=== PATIENT | female | born 1965 | race Two or more races ===

== ENCOUNTER 2019-08-11 16:06 | Inpatient (IN) | payer OTHER ==
[~2019-08-11] VITALS: Ht 167.6 cm; Wt 100.0 kg
[2019-08-11] MEDS ORDERED: TOPROL PO (16:36)
--- NOTE | 2019-08-11 16:48 | NUR ---
pt ambulated to room, smooth and steady gait, tried to urinate and unable to produce urine sample, Trina SIMMONS at bedside assessing and discussing plan of care. NAD, even and unlabored respirations, call light within reach, changed into gown and resting on IQRA dobbins. Plan to bladder scan and proceed from there.
[2019-08-11] MEDS ORDERED: PHENAZOPYRIDINE 200 MG TABLET ONE (16:55)
[2019-08-11] MEDS ORDERED: PHENAZOPYRIDINE 200 MG TABLET PO ONE (17:00)
[2019-08-11 17:07] LABS: BASOPHILS # (AUTO) 0.02 x10^3/uL (0-0.1); BASOPHILS % (AUTO) 0 % (0-1); EOSINOPHILS % (AUTO) 1 % (1-7); LYMPHOCYTES # (AUTO) 1.65 x10^3/uL (1-3.4); LYMPHOCYTES % (AUTO) 22 % (22-44); MD NO; MEAN PLATELET VOLUME 9.1 fL (7.4-10.4); MONOCYTES # (AUTO) 0.92 x10^3/uL (0.2-0.8); MONOCYTES % (AUTO) 12 % (2-9); NEUTROPHILS # (AUTO) 4.85 x10^3/uL (1.8-6.8); NEUTROPHILS % (AUTO) 64 % (42-75); PLATELET COUNT 266 x10^3/uL (130-400); RED BLOOD COUNT 3.69 x10^6/uL (3.82-5.3); RED CELL DISTRIBUTION WIDTH 18.3 % (9.6-15.2)
--- NOTE | 2019-08-11 17:13 | NUR ---
pt resting in gurney watching television. given warm blanket for comfort, NAD, even and unlabored respirations, denies additional needs at this time, WCTM.
--- NOTE | 2019-08-11 17:13 | NUR ---
BLADDER SCAN REVEALED [address] JOSLYN, INFORMED.
[2019-08-11 17:16] LABS: ANION GAP 12 mmol/L (5-15); CALCIUM 8.7 mg/dL (8.5-10.1); CHLORIDE 93 mmol/L (98-107)
[2019-08-11 18:29] LABS: CULTURE INDICATED? YES; MICROSCOPIC INDICATED
--- NOTE | 2019-08-11 18:35 | NUR ---
PT RESTING IN GURNEY, AWAITING ADMIT, US AT BEDSIDE, NAD, EVEN AND UNLABORED RESPIRATIONS, CALL LIGHT WITHIN REACH, AT BEDSIDE. WCTM
[2019-08-11] MEDS ORDERED: OXYC60TA PO (18:54)
[2019-08-11] MEDS ORDERED: OXYC10TA47 PO ×2 (18:54)
[2019-08-11] MEDS ORDERED: LORA-446 PO (18:54)
--- NOTE | 2019-08-11 19:01 | NUR ---
Bedside report to Julian SULLIVAN, pt care transferred at this time.
[2019-08-11] MEDS ORDERED: ONDANSETRON ODT 4 MG PO PRN (19:30)
[2019-08-11] MEDS ORDERED: SODIUM CHLORIDE 0.9% 1,000 ML IV SCH (19:30)
[2019-08-11] MEDS ORDERED: BISACODYL 10 MG SUPP PR PRN (19:30)
[2019-08-11 19:43] LABS: BILIRUBIN, DIRECT 1.4 mg/dL (0.1-0.2)
[2019-08-11 19:45] LABS: BILIRUBIN,INDIRECT 0.6 mg/dL (0.0-2.0); TOTAL PROTEIN 7.4 g/dL (6.4-8.2)
[2019-08-11] MEDS ORDERED: HEPARIN 5,000 UNITS/ML, 1ML ONE (20:08)
[2019-08-11] MEDS ORDERED: CEFTRIAXONE PMX 1GM/50ML 50 ML ONE (20:08)
[2019-08-11] MEDS: HEPARIN 5,000 UNITS/ML, 1ML SQ SCH (20:14)
[2019-08-11] MEDS: CEFTRIAXONE PMX 1GM/50ML 50 ML IV SCH (20:15)
--- NOTE | 2019-08-11 20:43 | NUR ---
PT RESTING COMFORTABLY WITH SO AT BEDSIDE. WARM BLANKETS PROVIDED. MONITOR IN PLACE.
[2019-08-11] MEDS ORDERED: OXYcodone IR 5MG TABLET ONE (20:46)
[2019-08-11] MEDS: OXYcodone IR 5MG TABLET PO PRN (20:48)
[2019-08-11 21:19] VITALS: BP 100/67
[2019-08-11] MEDS: SODIUM CHLORIDE 0.9% 1,000 ML IV SCH (22:16)
[2019-08-11] MEDS: LORazepam 1MG TABLET PO PRN (23:36)
[2019-08-12 00:40] VITALS: BP_SYST 87; BP_SYST 91; BP_DIAS 55; BP_DIAS 61
[2019-08-12] MEDS: SODIUM CHLORIDE 0.9% 1,000 ML IV SCH ×3 (02:15→22:23)
[2019-08-12 02:16] VITALS: BP 106/60
[2019-08-12] MEDS: HEPARIN 5,000 UNITS/ML, 1ML SQ SCH ×3 (04:14→20:38)
[2019-08-12] MEDS: OXYcodone IR 5MG TABLET PO PRN ×4 (05:15→23:50)
[2019-08-12 05:29] LABS: BASOPHILS # (AUTO) 0.01 x10^3/uL (0-0.1); BASOPHILS % (AUTO) 0 % (0-1); EOSINOPHILS # (AUTO) 0.12 x10^3/uL (0-0.4); EOSINOPHILS % (AUTO) 2 % (1-7); LYMPHOCYTES # (AUTO) 1.71 x10^3/uL (1-3.4); LYMPHOCYTES % (AUTO) 31 % (22-44); MD NO; MEAN CORPUSCULAR HEMOGLOBIN 29.2 pg (27.0-34.8); MEAN CORPUSCULAR HGB CONC 32.7 g/dL (32.4-35.8); MEAN CORPUSCULAR VOLUME 89.2 fL (80-100); MEAN PLATELET VOLUME 9.1 fL (7.4-10.4); MONOCYTES # (AUTO) 0.91 x10^3/uL (0.2-0.8); MONOCYTES % (AUTO) 17 % (2-9); NEUTROPHILS # (AUTO) 2.76 x10^3/uL (1.8-6.8); NEUTROPHILS % (AUTO) 50 % (42-75); PLATELET COUNT 233 x10^3/uL (130-400); RED BLOOD COUNT 3.24 x10^6/uL (3.82-5.3); RED CELL DISTRIBUTION WIDTH 17.8 % (9.6-15.2)
[2019-08-12 05:35] LABS: ALANINE AMINOTRANSFERASE 68 U/L (12-78); ALBUMIN 2.3 g/dL (3.4-5.0); ANION GAP 9 mmol/L (5-15); CALCIUM 8.1 mg/dL (8.5-10.1); CHLORIDE 97 mmol/L (98-107); CREATININE 4.63 mg/dL (0.55-1.02)
[2019-08-12 05:37] LABS: ALKALINE PHOSPHATASE 402 U/L (45-117); BILIRUBIN,TOTAL 1.3 mg/dL (0.2-1.0); TOTAL PROTEIN 6.1 g/dL (6.4-8.2)
[2019-08-12] MEDS: SENNA/DOCUSATE TABLET PO SCH (07:36)
[2019-08-12] MEDS ORDERED: PHARMACY MAY ADJ FOR RENAL FX MC PRN (08:00)
[2019-08-12] MEDS ORDERED: DEXTROSE 4 GM TAB.CHEW PO PRN (08:00)
[2019-08-12] MEDS ORDERED: DEXTROSE 50%, 50ML SYRINGE IVPush PRN (08:00)
[2019-08-12] MEDS ORDERED: GLUCAGON 1 MG IM PRN (08:00)
[2019-08-12 08:06] VITALS: BP 95/61
[2019-08-12] MEDS: SODIUM CHLORIDE FLUSH 10ML SYR IVF SCH ×2 (09:57→20:38)
[2019-08-12] MEDS ORDERED: OXYcodone 5 MG/5 ML ORAL.SOL UDC ONE ×2 (11:14→11:17)
[2019-08-12 14:37] VITALS: BP 81/52
[2019-08-12] MEDS: CEFTRIAXONE PMX 1GM/50ML 50 ML IV SCH (19:05)
[2019-08-12 19:32] VITALS: BP 104/66
[2019-08-12] MEDS: LORazepam 1MG TABLET PO PRN (21:21)
[2019-08-13 00:03] VITALS: BP 94/67
[2019-08-13] MEDS: SODIUM CHLORIDE 0.9% 1,000 ML IV SCH ×2 (04:49→11:12)
[2019-08-13] MEDS: HEPARIN 5,000 UNITS/ML, 1ML SQ SCH ×2 (04:49→13:02)
[2019-08-13 06:03] LABS: ALANINE AMINOTRANSFERASE 76 U/L (12-78); ALBUMIN 2.4 g/dL (3.4-5.0); ANION GAP 10 mmol/L (5-15); CALCIUM 8.4 mg/dL (8.5-10.1); CHLORIDE 106 mmol/L (98-107); CREATININE 2.62 mg/dL (0.55-1.02)
[2019-08-13 06:05] LABS: ALKALINE PHOSPHATASE 564 U/L (45-117); BILIRUBIN,TOTAL 1.5 mg/dL (0.2-1.0); TOTAL PROTEIN 6.6 g/dL (6.4-8.2)
[2019-08-13 06:13] LABS: BASOPHILS # (AUTO) 0.01 x10^3/uL (0-0.1); BASOPHILS % (AUTO) 0 % (0-1); EOSINOPHILS % (AUTO) 2 % (1-7); LYMPHOCYTES # (AUTO) 1.65 x10^3/uL (1-3.4); LYMPHOCYTES % (AUTO) 42 % (22-44); MD NO; MEAN CORPUSCULAR HEMOGLOBIN 28.9 pg (27.0-34.8); MEAN CORPUSCULAR HGB CONC 32.9 g/dL (32.4-35.8); MEAN CORPUSCULAR VOLUME 87.8 fL (80-100); MEAN PLATELET VOLUME 9.5 fL (7.4-10.4); MONOCYTES # (AUTO) 0.52 x10^3/uL (0.2-0.8); MONOCYTES % (AUTO) 13 % (2-9); NEUTROPHILS # (AUTO) 1.68 x10^3/uL (1.8-6.8); NEUTROPHILS % (AUTO) 43 % (42-75); PLATELET COUNT 285 x10^3/uL (130-400); RED BLOOD COUNT 3.61 x10^6/uL (3.82-5.3); RED CELL DISTRIBUTION WIDTH 18.1 % (9.6-15.2)
[2019-08-13 06:47] VITALS: BP 95/67
[2019-08-13 07:16] VITALS: BP 102/64
[2019-08-13] MEDS: OXYcodone IR 5MG TABLET PO PRN ×3 (07:20→19:25)
[2019-08-13] MEDS ORDERED: POTASSIUM CHLORIDE 20 MEQ TAB.ER.PRT PO ONE (09:00)
[2019-08-13] MEDS ORDERED: BISACODYL 10 MG SUPP PR PRN (09:00)
[2019-08-13] MEDS: SODIUM CHLORIDE FLUSH 10ML SYR IVF SCH ×2 (09:15→21:00)
[2019-08-13] MEDS: POLYETHYLENE GLYCOL 17 GM PACKET PO PRN (09:17)
[2019-08-13] MEDS: SENNA/DOCUSATE TABLET PO SCH (09:17)
[2019-08-13] MEDS: LACTATED RINGERS 1,000 ML IV SCH (13:03)
[2019-08-13 13:08] VITALS: BP 110/71
[2019-08-13] MEDS: LORazepam 1MG TABLET PO PRN ×2 (15:18→21:21)
[2019-08-13] MEDS: CEFTRIAXONE PMX 1GM/50ML 50 ML IV SCH (19:25)
[2019-08-13 20:51] VITALS: BP 111/71
[2019-08-14] MEDS: LACTATED RINGERS 1,000 ML IV SCH (01:37)
[2019-08-14] MEDS: OXYcodone IR 5MG TABLET PO PRN ×3 (01:37→21:49)
[2019-08-14 02:30] VITALS: BP 129/79
[2019-08-14 05:56] LABS: ALBUMIN 2.2 g/dL (3.4-5.0); ANION GAP 9 mmol/L (5-15); CALCIUM 8.5 mg/dL (8.5-10.1); CHLORIDE 109 mmol/L (98-107)
[2019-08-14 06:02] LABS: ALANINE AMINOTRANSFERASE 96 U/L (12-78); ALKALINE PHOSPHATASE 562 U/L (45-117); BILIRUBIN,TOTAL 1.4 mg/dL (0.2-1.0); CREATININE 1.55 mg/dL (0.55-1.02); TOTAL PROTEIN 6.1 g/dL (6.4-8.2)
[2019-08-14 06:26] LABS: BASOPHILS # (AUTO) 0.02 x10^3/uL (0-0.1); BASOPHILS % (AUTO) 1 % (0-1); EOSINOPHILS # (AUTO) 0.09 x10^3/uL (0-0.4); EOSINOPHILS % (AUTO) 2 % (1-7); LYMPHOCYTES # (AUTO) 1.72 x10^3/uL (1-3.4); LYMPHOCYTES % (AUTO) 42 % (22-44); MD NO; MEAN CORPUSCULAR HEMOGLOBIN 28.2 pg (27.0-34.8); MEAN CORPUSCULAR HGB CONC 32.2 g/dL (32.4-35.8); MEAN CORPUSCULAR VOLUME 87.6 fL (80-100); MEAN PLATELET VOLUME 9.4 fL (7.4-10.4); MONOCYTES # (AUTO) 0.52 x10^3/uL (0.2-0.8); MONOCYTES % (AUTO) 13 % (2-9); NEUTROPHILS # (AUTO) 1.74 x10^3/uL (1.8-6.8); NEUTROPHILS % (AUTO) 43 % (42-75); PLATELET COUNT 341 x10^3/uL (130-400); RED BLOOD COUNT 3.63 x10^6/uL (3.82-5.3); RED CELL DISTRIBUTION WIDTH 17.7 % (9.6-15.2)
[2019-08-14] MEDS ORDERED: BUPIVACAINE/PF-EPI 0.5% 1:200K ONE (06:49)
[2019-08-14] MEDS: SENNA/DOCUSATE TABLET PO SCH (07:47)
[2019-08-14 08:05] VITALS: BP 123/80
[2019-08-14] MEDS ORDERED: CHLORHEXIDINE 15 ML UDC MM STA (08:21)
[2019-08-14] MEDS: SODIUM CHLORIDE FLUSH 10ML SYR IVF SCH ×2 (08:34→21:00)
[2019-08-14] MEDS ORDERED: POTASSIUM CHLORIDE 20 MEQ in SODIUM CHLORIDE 0.9% 250 ML IV ONE (09:00)
[2019-08-14] MEDS ORDERED: HALOPERIDOL 5 MG/ML IV PRN (09:00)
[2019-08-14] MEDS ORDERED: PROMETHAZINE 25 MG/ML, 1ML IV PRN (09:00)
[2019-08-14] MEDS ORDERED: hydrALAzine 20 MG/ML, 1ML IV PRN (09:00)
[2019-08-14] MEDS ORDERED: HYDROmorphone 2 MG/ML, 1ML IVPush PRN (09:00)
[2019-08-14] MEDS ORDERED: LABETALOL 5MG/ML, 20ML IV PRN (09:00)
[2019-08-14] MEDS ORDERED: MEPERIDINE/PF 25MG/ML,1ML IVPush PRN (09:00)
[2019-08-14] MEDS ORDERED: OXYcodone 5 MG/5 ML ORAL.SOL UDC PO PRN (09:00)
[2019-08-14] MEDS ORDERED: MIDAZOLAM 1 MG/ML, 2ML ONE (09:06)
[2019-08-14] MEDS ORDERED: FENTANYL PF 250 MCG/5ML ONE ×2 (09:07→09:36)
[2019-08-14] MEDS ORDERED: FENTANYL PF 100 MCG/2ML ONE ×4 (11:21→12:26)
[2019-08-14] MEDS ORDERED: CEFAZOLIN 1,000 MG ONE (11:51)
[2019-08-14] MEDS ORDERED: PROPOFOL 10 MG/ML, 20ML ONE (11:51)
[2019-08-14] MEDS ORDERED: ONDANSETRON 2MG/ML, 2ML ONE (11:51)
[2019-08-14] MEDS ORDERED: SUCCINYLCHOLINE 20 MG/ML, 10ML ONE (11:51)
[2019-08-14] MEDS ORDERED: GLYCOPYRROLATE 0.2MG/1ML, 5ML ONE (11:51)
[2019-08-14] MEDS ORDERED: DEXAMETHASONE 4 MG/ML, 1ML ONE (11:51)
[2019-08-14] MEDS ORDERED: ROCURONIUM 10MG/ML,5ML ONE (11:51)
[2019-08-14] MEDS ORDERED: NEOSTIGMINE 1 MG/ML, 10ML ONE (11:51)
[2019-08-14] MEDS: FENTANYL PF 100 MCG/2ML IV PRN ×4 (11:53→13:03)
[2019-08-14] MEDS ORDERED: OXYcodone 5 MG/5 ML ORAL.SOL UDC ONE (11:57)
[2019-08-14] MEDS ORDERED: DIAZEPAM 5 MG/ML, 2ML ONE (11:57)
[2019-08-14] MEDS ORDERED: HYDROmorphone 1 MG/ML, 1ML INJ ONE ×2 (12:15→13:06)
[2019-08-14] MEDS: HYDROmorphone 2 MG/ML, 1ML IVPush PRN ×4 (12:20→13:18)
[2019-08-14] MEDS ORDERED: DIAZEPAM 5 MG/ML, 2ML IVPush PRN (12:30)
[2019-08-14 13:40] VITALS: BP 114/77
[2019-08-14] MEDS: LORazepam 1MG TABLET PO PRN ×2 (17:08→21:49)
[2019-08-14 18:37] VITALS: BP 139/87
[2019-08-14] MEDS: CEFTRIAXONE PMX 1GM/50ML 50 ML IV SCH (19:35)
[2019-08-14] MEDS: DIAZEPAM 5 MG/ML, 2ML IM PRN (20:00)
[2019-08-14] MEDS: ACETAMINOPHEN 325 MG TABLET PO PRN (21:49)
[2019-08-14 23:46] VITALS: BP 144/81
[2019-08-15] MEDS: DIAZEPAM 5 MG/ML, 2ML IM PRN ×4 (02:03→21:25)
[2019-08-15] MEDS: ACETAMINOPHEN 325 MG TABLET PO PRN ×3 (03:52→18:24)
[2019-08-15] MEDS: LORazepam 1MG TABLET PO PRN ×3 (03:52→18:24)
[2019-08-15] MEDS: OXYcodone IR 5MG TABLET PO PRN ×5 (03:52→22:40)
[2019-08-15 03:54] VITALS: BP 134/73
[2019-08-15 05:15] LABS: BASOPHILS # (AUTO) 0.01 x10^3/uL (0-0.1); BASOPHILS % (AUTO) 0 % (0-1); EOSINOPHILS # (AUTO) 0.08 x10^3/uL (0-0.4); EOSINOPHILS % (AUTO) 1 % (1-7); LYMPHOCYTES # (AUTO) 1.41 x10^3/uL (1-3.4); LYMPHOCYTES % (AUTO) 12 % (22-44); MD NO; MEAN CORPUSCULAR HGB CONC 33.3 g/dL (32.4-35.8); MEAN CORPUSCULAR VOLUME 87.2 fL (80-100); MEAN PLATELET VOLUME 8.8 fL (7.4-10.4); MONOCYTES # (AUTO) 0.91 x10^3/uL (0.2-0.8); MONOCYTES % (AUTO) 8 % (2-9); NEUTROPHILS % (AUTO) 79 % (42-75); PLATELET COUNT 382 x10^3/uL (130-400); RED CELL DISTRIBUTION WIDTH 17.9 % (9.6-15.2)
[2019-08-15 05:17] LABS: ALANINE AMINOTRANSFERASE 102 U/L (12-78); ALBUMIN 2.4 g/dL (3.4-5.0); ANION GAP 9 mmol/L (5-15); CALCIUM 8.6 mg/dL (8.5-10.1); CHLORIDE 109 mmol/L (98-107); CREATININE 1.34 mg/dL (0.55-1.02)
[2019-08-15 05:19] LABS: ALKALINE PHOSPHATASE 502 U/L (45-117); BILIRUBIN,TOTAL 1.1 mg/dL (0.2-1.0); TOTAL PROTEIN 6.5 g/dL (6.4-8.2)
[2019-08-15 07:53] VITALS: BP 144/83
[2019-08-15] MEDS: SODIUM CHLORIDE FLUSH 10ML SYR IVF SCH ×2 (09:00→20:47)
[2019-08-15] MEDS: LACTATED RINGERS 1,000 ML IV SCH (09:50)
[2019-08-15] MEDS: SENNA/DOCUSATE TABLET PO SCH (09:50)
[2019-08-15] MEDS: HEPARIN 5,000 UNITS/ML, 1ML SQ SCH ×2 (10:38→18:24)
[2019-08-15 13:25] VITALS: BP 151/87
[2019-08-15] MEDS: CEFTRIAXONE PMX 1GM/50ML 50 ML IV SCH (18:51)
[2019-08-15 19:52] VITALS: BP 146/85
[2019-08-16] MEDS: HEPARIN 5,000 UNITS/ML, 1ML SQ SCH ×3 (01:44→18:27)
[2019-08-16 02:20] VITALS: BP 147/84
[2019-08-16] MEDS: DIAZEPAM 5 MG/ML, 2ML IM PRN (03:33)
[2019-08-16] MEDS: OXYcodone IR 5MG TABLET PO PRN ×4 (04:34→22:48)
[2019-08-16 04:45] LABS: BASOPHILS % (AUTO) 1 % (0-1); EOSINOPHILS % (AUTO) 1 % (1-7); LYMPHOCYTES # (AUTO) 1.51 x10^3/uL (1-3.4); LYMPHOCYTES % (AUTO) 17 % (22-44); MD NO; MEAN CORPUSCULAR HEMOGLOBIN 29.1 pg (27.0-34.8); MEAN CORPUSCULAR HGB CONC 33.1 g/dL (32.4-35.8); MEAN CORPUSCULAR VOLUME 87.8 fL (80-100); MEAN PLATELET VOLUME 8.2 fL (7.4-10.4); MONOCYTES % (AUTO) 7 % (2-9); NEUTROPHILS # (AUTO) 6.84 x10^3/uL (1.8-6.8); NEUTROPHILS % (AUTO) 75 % (42-75); PLATELET COUNT 414 x10^3/uL (130-400); RED CELL DISTRIBUTION WIDTH 18.2 % (9.6-15.2)
[2019-08-16 04:50] LABS: ALBUMIN 2.4 g/dL (3.4-5.0); ANION GAP 8 mmol/L (5-15); CALCIUM 8.5 mg/dL (8.5-10.1); CHLORIDE 106 mmol/L (98-107)
[2019-08-16 04:53] LABS: ALANINE AMINOTRANSFERASE 76 U/L (12-78); ALKALINE PHOSPHATASE 407 U/L (45-117); BILIRUBIN,TOTAL 1.2 mg/dL (0.2-1.0); TOTAL PROTEIN 6.4 g/dL (6.4-8.2)
[2019-08-16] MEDS: LACTATED RINGERS 1,000 ML IV SCH (05:26)
[2019-08-16 06:42] VITALS: BP 155/92
[2019-08-16] MEDS: SODIUM CHLORIDE FLUSH 10ML SYR IVF SCH ×2 (09:00→21:00)
[2019-08-16] MEDS: POTASSIUM CHLORIDE 20 MEQ PACKET PO SCH ×2 (09:44→20:29)
[2019-08-16] MEDS: SENNA/DOCUSATE TABLET PO SCH (09:44)
[2019-08-16] MEDS: DIAZEPAM 5 MG TABLET PO PRN ×3 (09:44→21:38)
[2019-08-16] MEDS: ACETAMINOPHEN 325 MG TABLET PO PRN ×3 (10:27→22:48)
[2019-08-16 12:39] VITALS: BP 154/93
[2019-08-16] MEDS ORDERED: MAGNESIUM SULFATE 4 GM in SODIUM CHLORIDE 0.9% 100 ML IV ONE (13:30)
[2019-08-16 15:30] VITALS: BP 153/85
[2019-08-16] MEDS: METOPROLOL SUCCINATE 50 MG TAB.ER.24H PO SCH (15:34)
[2019-08-16 19:12] VITALS: BP_SYST 135; BP_SYST 150; BP_DIAS 78
[2019-08-16] MEDS: CEFTRIAXONE PMX 1GM/50ML 50 ML IV SCH (20:29)
[2019-08-17 01:08] VITALS: BP 147/87
[2019-08-17] MEDS: HEPARIN 5,000 UNITS/ML, 1ML SQ SCH ×2 (02:32→09:17)
[2019-08-17] MEDS: LORazepam 1MG TABLET PO PRN ×2 (03:32→09:17)
[2019-08-17] MEDS: METOPROLOL SUCCINATE 50 MG TAB.ER.24H PO SCH (05:15)
[2019-08-17] MEDS: OXYcodone IR 5MG TABLET PO PRN ×2 (05:15→10:41)
[2019-08-17 05:53] LABS: BASOPHILS # (AUTO) 0.03 x10^3/uL (0-0.1); BASOPHILS % (AUTO) 0 % (0-1); EOSINOPHILS # (AUTO) 0.32 x10^3/uL (0-0.4); EOSINOPHILS % (AUTO) 5 % (1-7); LYMPHOCYTES # (AUTO) 1.47 x10^3/uL (1-3.4); LYMPHOCYTES % (AUTO) 21 % (22-44); MD NO; MEAN CORPUSCULAR HEMOGLOBIN 28.9 pg (27.0-34.8); MEAN CORPUSCULAR HGB CONC 32.8 g/dL (32.4-35.8); MEAN CORPUSCULAR VOLUME 88.1 fL (80-100); MEAN PLATELET VOLUME 7.9 fL (7.4-10.4); MONOCYTES # (AUTO) 0.59 x10^3/uL (0.2-0.8); MONOCYTES % (AUTO) 8 % (2-9); NEUTROPHILS # (AUTO) 4.62 x10^3/uL (1.8-6.8); NEUTROPHILS % (AUTO) 66 % (42-75); PLATELET COUNT 449 x10^3/uL (130-400); RED BLOOD COUNT 3.54 x10^6/uL (3.82-5.3); RED CELL DISTRIBUTION WIDTH 18.2 % (9.6-15.2)
[2019-08-17 05:59] LABS: ALANINE AMINOTRANSFERASE 55 U/L (12-78); ALBUMIN 2.3 g/dL (3.4-5.0); ANION GAP 6 mmol/L (5-15); CALCIUM 8.8 mg/dL (8.5-10.1); CHLORIDE 106 mmol/L (98-107)
[2019-08-17 06:02] LABS: ALKALINE PHOSPHATASE 332 U/L (45-117); BILIRUBIN,TOTAL 0.9 mg/dL (0.2-1.0); CREATININE 0.94 mg/dL (0.55-1.02); TOTAL PROTEIN 6.2 g/dL (6.4-8.2)
[2019-08-17 07:24] VITALS: BP 143/88
[2019-08-17] MEDS ORDERED: POTASSIUM CHLORIDE 20 MEQ TAB.ER.PRT PO ONE (08:00)
[2019-08-17] MEDS: SODIUM CHLORIDE FLUSH 10ML SYR IVF SCH (09:00)
[2019-08-17] MEDS: SENNA/DOCUSATE TABLET PO SCH (09:17)
[2019-08-17] MEDS: POLYETHYLENE GLYCOL 17 GM PACKET PO PRN (09:17)
[2019-08-17 13:16] VITALS: BP 145/85
[2019-08-17 14:50] VITALS: BP 135/88
== END 2019-08-17 15:08 | disposition home or self-care (01) | DRG 412 ==
LOC: ED 17:22 → EDIP 18:31 → 3N 21:08 → 4NE 08-13 22:51
PROVIDERS: ADMIT Internal Medicine; ATTEND Internal Medicine Infectious Disease
PROC: 0FC90ZZ Extirpation of Matter from Common Bile Duct, Open Approach (ICD-10-PCS; 2019-08-14)
PROC: BF10YZZ Fluoroscopy of Bile Ducts using Other Contrast (ICD-10-PCS; 2019-08-14)
PROC: 0FT40ZZ Resection of Gallbladder, Open Approach (ICD-10-PCS; principal; 2019-08-14 09:15)
DX: K80.61 Calculus of gallbladder and bile duct with cholecystitis, unspecified, with obstruction (principal); E87.1 Hypo-osmolality and hyponatremia; E87.2 Acidosis; F11.20 Opioid dependence, uncomplicated; N17.9 Acute kidney failure, unspecified; E66.9 Obesity, unspecified; D50.9 Iron deficiency anemia, unspecified; E87.6 Hypokalemia; G89.29 Other chronic pain; I12.9 Hypertensive chronic kidney disease with stage 1 through stage 4 chronic kidney disease, or unspecified chronic kidney disease; M54.5 Low back pain; I95.9 Hypotension, unspecified; F41.9 Anxiety disorder, unspecified; E83.42 Hypomagnesemia; N18.9 Chronic kidney disease, unspecified; Z68.36 Body mass index [BMI] 36.0-36.9, adult; Z78.0 Asymptomatic menopausal state; Z87.440 Personal history of urinary (tract) infections; Z98.84 Bariatric surgery status; Z90.710 Acquired absence of both cervix and uterus; Z87.891 Personal history of nicotine dependence
CPT/HCPCS: 36415; 74176; 74181; 74300; 76770; 80048; 80053; 80074; 80076; 81001; 82040; 82436; 82570; 82728; 83540; 83550; 83690; 83735; 84100; 84133; 84145; 84300; 84443; 84466; 85025; 86850; 86900; 87040; 87086; 88304; 93005; 99285; G0378; J0690; J0696; J1100; J1170; J1644; J2250; J2270; J2405; J2704; J2710; J3010; J3360; J3475; J3480; C1757; J0330; J7030; J7050; J7120

== ENCOUNTER 2019-09-25 08:31 | Outpatient (CLI) | payer OTHER ==
[~2019-09-25 08:31] MED LIST: LORA-446 PO; OXYC10TA47 PO; OXYC60TA PO; TOPROL PO
[2019-09-25] MEDS ORDERED: OMNIPAQUE 350 MG/ML, 50 ML BOTTLE ONE (09:00)
== END 2019-09-25 23:59 | disposition home or self-care (01) ==
LOC: RAD 08:31 → EDSTATUS 09:30 → RAD 23:59
PROVIDERS: ATTEND Surgery
DX: Z48.815 Encounter for surgical aftercare following surgery on the digestive system (principal); Z90.49 Acquired absence of other specified parts of digestive tract; Z97.8 Presence of other specified devices
CPT/HCPCS: 47531; Q9967

== ENCOUNTER 2020-05-21 12:49 | Emergency (ER) | payer OTHER ==
[~2020-05-21] VITALS: Ht 167.6 cm; Wt 99.9 kg
[2020-05-21 12:51] VITALS: BP 136/80
[2020-05-21] MEDS ORDERED: DEXAMETHASONE 4 MG/ML, 1ML PO ONE (14:30)
[2020-05-21 15:13] LABS: BASOPHILS % (AUTO) 1 % (0-1); EOSINOPHILS % (AUTO) 1 % (1-7); LYMPHOCYTES % (AUTO) 33 % (22-44); MEAN CORPUSCULAR HEMOGLOBIN 29.2 pg (27.0-34.8); MEAN CORPUSCULAR HGB CONC 33.1 g/dL (32.4-35.8); MEAN PLATELET VOLUME 8.2 fL (7.4-10.4); MONOCYTES % (AUTO) 8 % (2-9); NEUTROPHILS % (AUTO) 57 % (42-75); PLATELET COUNT 320 x10^3/uL (130-400); RED BLOOD COUNT 4.54 x10^6/uL (3.82-5.3); RED CELL DISTRIBUTION WIDTH 16.7 % (9.6-15.2)
[2020-05-21 15:14] LABS: MD NO
[2020-05-21 15:17] LABS: ALANINE AMINOTRANSFERASE 29 U/L (12-78); ALBUMIN 4.2 g/dL (3.4-5.0); ANION GAP 5 mmol/L (5-15); CALCIUM 9.1 mg/dL (8.5-10.1); CHLORIDE 107 mmol/L (98-107); CREATININE 1.01 mg/dL (0.55-1.02)
[2020-05-21 15:19] LABS: ALKALINE PHOSPHATASE 118 U/L (45-117); BILIRUBIN,TOTAL 0.3 mg/dL (0.2-1.0); SALICYLATE LEVEL < 1.7 mg/dL (2.8-20.0); TOTAL PROTEIN 7.9 g/dL (6.4-8.2)
--- NOTE | 2020-05-21 15:32 | NUR ---
[employer] counselor: pt from lobby to room 8
[2020-05-21] MEDS ORDERED: DEXAMETHASONE 4 MG/ML, 1ML ONE ×2 (15:39→15:42)
--- NOTE | 2020-05-21 16:04 | NUR ---
PT MEDICATED PER MAR. STATES "HOW DID THEY KNOW THAT I HAD A RASH, DID I TELL HIM THAT" APPEARS VERY ANXIOUS, PT NOW REQUESTING ANXIETY AND PAIN MEDICATIONS. ERP UPDATED
[2020-05-21] MEDS ORDERED: LORazepam 0.5MG TABLET PO ONE (16:30)
[2020-05-21] MEDS ORDERED: ZIPRASIDONE 20MG CAPSULE PO ONE (16:30)
[2020-05-21] MEDS ORDERED: ZIPRASIDONE 20MG CAPSULE ONE (16:35)
[2020-05-21] MEDS ORDERED: LORazepam 1MG TABLET ONE (16:35)
--- NOTE | 2020-05-21 16:58 | NUR ---
CELINA DUVAL IN TO [facility] PT. HOLD GEODON AT THIS TIME.
[2020-05-21] MEDS ORDERED: OXYcodone/APAP 5/325MG TABLET PO ONE (17:30)
[2020-05-21] MEDS ORDERED: OXYcodone/APAP 5/325MG TABLET ONE (17:46)
--- NOTE | 2020-05-21 17:57 | NUR ---
PT MEDICATED PER MAR, WILL PROCEED WITH DC
== END 2020-05-21 18:12 | disposition home or self-care (01) ==
LOC: ED 15:41
DX: F43.22 Adjustment disorder with anxiety (principal); G89.29 Other chronic pain; F41.1 Generalized anxiety disorder; I10 Essential (primary) hypertension; Z76.0 Encounter for issue of repeat prescription
CPT/HCPCS: 36415; 80053; 80299; 80320; 80329; 85025; 99283; G0480

== ENCOUNTER 2020-12-02 09:11 | Emergency (ER) | payer OTHER ==
[~2020-12-02] VITALS: Ht 167.6 cm; Wt 108.1 kg
--- NOTE | 2020-12-02 09:20 | NUR ---
CARDING UTILITY TENDER: PT W/ BRUISING AND PALPABLE RT CLAVICLE DEFORMITY. SLING PLACED FOR COMFORT BY VETERINARY BACTERIOLOGIST.
[2020-12-02] MEDS ORDERED: ONDANSETRON ODT 4 MG PO ONE (10:00)
[2020-12-02] MEDS ORDERED: HYDROmorphone 1 MG/ML, 1ML INJ IM ONE (10:00)
[2020-12-02] MEDS ORDERED: ONDANSETRON 2MG/ML, 2ML ONE (10:05)
[2020-12-02] MEDS ORDERED: HYDROmorphone 1 MG/ML, 1ML INJ ONE ×2 (10:05→11:28)
--- NOTE | 2020-12-02 10:09 | NUR ---
PT OFF THE FLOOR TO XRAY
--- NOTE | 2020-12-02 10:15 | NUR ---
DISCUSSED PT MEDICATION WITH DR ESTEBAN. PT HAS IV IN PLACE AND DR ESTEBAN VERBAL ORDER FOR MEDICATIONS DILAUDID 0.5MG AND XOFRAN 4MG TO BE GIVEN IV INSTEAD OF IM AND PO.
--- NOTE | 2020-12-02 10:16 | NUR ---
PT MEDICATED FOR PAIN
--- NOTE | 2020-12-02 11:22 | NUR ---
MESSAGED ABOUT PT REQ PAIN MEDS
[2020-12-02] MEDS ORDERED: HYDROmorphone 1 MG/ML, 1ML INJ IV ONE (11:30)
[2020-12-02 12:50] VITALS: BP 129/83
--- NOTE | 2020-12-02 12:52 | NUR ---
PT REC'VD DISCHARGE INSTRUCTIONS AND EDUCATION. PT HAD NO FURTHER QUESTIONS.
--- NOTE | 2020-12-02 13:01 | NUR ---
PT AMBULATED TO NH AREA, SLING IN PLACE, STEADY GAIT.
== END 2020-12-02 13:12 | disposition home or self-care (01) ==
LOC: ED 10:22
DX: S42.021A Displaced fracture of shaft of right clavicle, initial encounter for closed fracture (principal); Z88.2 Allergy status to sulfonamides; W18.30XA Fall on same level, unspecified, initial encounter; Y93.89 Activity, other specified; Y92.009 Unspecified place in unspecified non-institutional (private) residence as the place of occurrence of the external cause; Y99.8 Other external cause status
CPT/HCPCS: 73000; 96374; 99283; J1170

== ENCOUNTER 2020-12-06 17:53 | Emergency (ER) | payer OTHER ==
[~2020-12-06] VITALS: Ht 167.6 cm; Wt 109.3 kg
--- NOTE | 2020-12-06 18:23 | NUR ---
WAS SUPPOSED TO HAVE SURGERY TUESDAY FOR HER COLLAR BONE. COULDNT BC SODIUM WAS LOW 126. TODAY WOKE UP W REALLY SHARP PAIN AND SOB AND ALSO RAN OUT OF HER PAIN MEDS.
[2020-12-06] MEDS ORDERED: ONDANSETRON ODT 4 MG PO ONE (18:30)
[2020-12-06] MEDS ORDERED: HYDROmorphone 2 MG/ML, 1ML IM ONE (18:30)
[2020-12-06] MEDS ORDERED: HYDROmorphone 2 MG/ML, 1ML ONE (18:36)
[2020-12-06] MEDS ORDERED: ONDANSETRON ODT 4 MG ONE (18:36)
[2020-12-06 18:52] VITALS: BP 121/68
[2020-12-06] MEDS ORDERED: [UNRECOGNIZED DRUG - OTHER] PO (18:52)
[2020-12-06] MEDS ORDERED: SUBOXONE (18:52)
[2020-12-06] MEDS ORDERED: VENL225T PO (18:52)
[2020-12-06] MEDS ORDERED: PREG150C PO (18:52)
[2020-12-06] MEDS ORDERED: METO25TA35 PO (18:52)
[2020-12-06] MEDS ORDERED: AMLO-150 PO (18:52)
[2020-12-06 18:53] LABS: BASOPHILS % (AUTO) 1 % (0-1); EOSINOPHILS % (AUTO) 3 % (1-7); LYMPHOCYTES % (AUTO) 32 % (22-44); MEAN CORPUSCULAR HEMOGLOBIN 27.6 pg (27.0-34.8); MONOCYTES % (AUTO) 10 % (2-9); NEUTROPHILS % (AUTO) 54 % (42-75); PLATELET COUNT 361 x10^3/uL (130-400); RED CELL DISTRIBUTION WIDTH 16.6 % (9.6-15.2)
[2020-12-06 19:01] LABS: ALBUMIN 3.6 g/dL (3.4-5.0); ANION GAP 3 mmol/L (5-15); CALCIUM 8.7 mg/dL (8.5-10.1); CHLORIDE 97 mmol/L (98-107); CREATININE 0.83 mg/dL (0.55-1.02)
--- NOTE | 2020-12-06 19:01 | NUR ---
MEDICATED. LABS PENDING.
== END 2020-12-06 19:29 | disposition home or self-care (01) ==
LOC: ED 18:38
DX: S42.021A Displaced fracture of shaft of right clavicle, initial encounter for closed fracture (principal); I10 Essential (primary) hypertension; Z87.891 Personal history of nicotine dependence; W18.30XA Fall on same level, unspecified, initial encounter; Y93.89 Activity, other specified; Y92.009 Unspecified place in unspecified non-institutional (private) residence as the place of occurrence of the external cause; Y99.8 Other external cause status
CPT/HCPCS: 36415; 71046; 80048; 82040; 85025; 96372; 99284; J1170; Q0162

== ENCOUNTER 2020-12-09 10:21 | Day surgery (SDC) | payer OTHER ==
[~2020-12-09] VITALS: Ht 167.6 cm; Wt 107.0 kg
[~2020-12-09 10:21] MED LIST changes: +AMLO-150 PO; +BUPIVACAINE/PF 0.5% ONE; +EPINEPHRINE 1 MG/ML, 1ML ONE; +METO25TA35 PO; +NEOSPORIN OINT. PKT 1 PACKET ONE; +PREG150C PO; +SUBOXONE; +VENL225T PO; +[UNRECOGNIZED DRUG - OTHER] PO
[2020-12-09] MEDS ORDERED: BUPR1FIL19 SL (10:56)
[2020-12-09] MEDS ORDERED: FENTANYL PF 250 MCG/5ML ONE ×2 (11:27→12:59)
[2020-12-09] MEDS ORDERED: PLEASE ENTER HEIGHT AND WEIGHT MC SCH (11:30)
[2020-12-09] MEDS ORDERED: CHLORHEXIDINE 15 ML UDC PO ONE (11:30)
[2020-12-09] MEDS ORDERED: CHLORHEXIDINE 15 ML UDC ONE (11:37)
[2020-12-09 11:40] VITALS: BP 124/84
[2020-12-09] MEDS ORDERED: LACTATED RINGERS 1,000 ML IV SCH (12:00)
[2020-12-09] MEDS ORDERED: EPHEDRINE 50 MG/ML, 1ML IVPush PRN (12:30)
[2020-12-09] MEDS ORDERED: MEPERIDINE/PF 25MG/0.5ML IVPush PRN (12:30)
[2020-12-09] MEDS ORDERED: ONDANSETRON 2MG/ML, 2ML IVPush PRN (12:30)
[2020-12-09] MEDS ORDERED: METHOCARBAMOL 1,000 MG in DEXTROSE 5% 100 ML IV PRN (12:30)
[2020-12-09] MEDS ORDERED: hydrALAzine 20 MG/ML, 1ML IV PRN (12:30)
[2020-12-09] MEDS ORDERED: PROMETHAZINE 25 MG/ML, 1ML IVPush PRN (12:30)
[2020-12-09] MEDS ORDERED: OXYcodone 5 MG/5 ML ORAL.SOL UDC PO PRN (12:30)
[2020-12-09] MEDS ORDERED: KETAMINE 50 MG/ML, 10ML ONE (12:30)
[2020-12-09] MEDS ORDERED: ACETAMINOPHEN 325 MG TABLET PO PRN (12:30)
[2020-12-09] MEDS ORDERED: LORazepam 2 MG/ML, 1ML IVPush PRN (12:30)
[2020-12-09] MEDS ORDERED: HYDROmorphone 1 MG/ML, 1ML INJ IVPush PRN (12:30)
[2020-12-09] MEDS ORDERED: SUFentanil 50 MCG/ML, 5ML ONE (12:30)
[2020-12-09] MEDS ORDERED: LABETALOL 5MG/ML, 20ML IV PRN (12:30)
[2020-12-09] MEDS ORDERED: CEFAZOLIN 1,000 MG ONE (12:35)
[2020-12-09] MEDS ORDERED: ONDANSETRON 2MG/ML, 2ML ONE (12:35)
[2020-12-09] MEDS ORDERED: DEXAMETHASONE 4 MG/ML, 1ML ONE (12:35)
[2020-12-09] MEDS ORDERED: PROPOFOL 10 MG/ML, 20ML ONE (12:35)
[2020-12-09] MEDS ORDERED: LIDOCAINE-MPF 2% ,5ML ONE (12:35)
[2020-12-09 12:37] LABS: MICROSCOPIC NOT IND
[2020-12-09] MEDS ORDERED: MIDAZOLAM 1 MG/ML, 2ML ONE (13:09)
[2020-12-09] MEDS ORDERED: OXYC5TAB98 PO (13:50)
[2020-12-09] MEDS ORDERED: FENTANYL PF 100 MCG/2ML ONE ×2 (14:13→14:24)
[2020-12-09] MEDS: FENTANYL PF 100 MCG/2ML IV PRN ×2 (14:14→14:23)
[2020-12-09] MEDS ORDERED: OXYcodone 5 MG/5 ML ORAL.SOL UDC ONE (14:24)
[2020-12-09] MEDS ORDERED: ACETAMINOPHEN 650 MG/20.3 ML UDC ONE (14:24)
== END 2020-12-09 16:15 | disposition home or self-care (01) ==
LOC: OR 10:21 → OUT 16:15
PROVIDERS: ATTEND Orthopaedic Surgery
DX: S42.021A Displaced fracture of shaft of right clavicle, initial encounter for closed fracture (principal); E66.9 Obesity, unspecified; F11.20 Opioid dependence, uncomplicated; Z20.822 Contact with and (suspected) exposure to COVID-19; Z79.899 Other long term (current) drug therapy; W18.39XA Other fall on same level, initial encounter; Y93.89 Activity, other specified; Y92.89 Other specified places as the place of occurrence of the external cause; Y99.8 Other external cause status
CPT/HCPCS: 23515; 73000; 81003; 87635; C1713; J0171; J0690; J1100; J2250; J2405; J2704; J3010; J7120; 76000